=== PATIENT | female | born 1985 | race Hispanic/Latino ===

== ENCOUNTER 2022-02-13 08:53 | Emergency (ER) | payer OTHER ==
[~2022-02-13] VITALS: Ht 154.9 cm; Wt 92.5 kg
[2022-02-13] MEDS ORDERED: ALBUTEROL INHALER 90MCG/INH IH ONE (10:00)
[2022-02-13] MEDS ORDERED: GUAIFENESIN-DM 200/20 MG 10 ML PO ONE (10:00)
[2022-02-13] MEDS ORDERED: DEXAMETHASONE SOD PHOSPHATE 4 MG/ML 1ML VIAL IM ONE (10:00)
[2022-02-13] MEDS ORDERED: IPRATROPIUM/ALBUTEROL SULFATE 3 ML SOLUTION IH ONE (10:00)
[2022-02-13] MEDS ORDERED: D-ME118S47 PO (10:17)
[2022-02-13] MEDS ORDERED: PRED20TA3 PO (10:17)
[2022-02-13] MEDS ORDERED: AZIT1PAC7 PO (10:17)
[2022-02-13] MEDS ORDERED: ALBU8.5H8 IH (10:17)
[2022-02-13 10:29] VITALS: BP 119/71
== END 2022-02-13 10:39 | disposition home or self-care (01) ==
LOC: EDH 08:53
DX: J06.9 Acute upper respiratory infection, unspecified (principal); R06.2 Wheezing; Z20.822 Contact with and (suspected) exposure to COVID-19; Z79.899 Other long term (current) drug therapy; Z90.89 Acquired absence of other organs
CPT/HCPCS: 99284; 71045; 87635; 87804 ×2; 96372; 94640; J1100; C9803

== ENCOUNTER → 2023-03-27 | Outpatient (CLI) | payer OTHER ==
[~2023-03-27] MED LIST: ALBU8.5H8 IH; AZIT1PAC7 PO; BROM118S48 PO; IOHEXOL 350 MG/ML 100ML INFUS..BTL IV ONE; IOHEXOL-350 75 ML VIAL IV ONE; PRED20TA3 PO
== END | disposition home or self-care (01) ==
LOC: RAH 07:45
PROVIDERS: ATTEND Internal Medicine Gastroenterology
DX: K82.8 Other specified diseases of gallbladder (principal); K42.9 Umbilical hernia without obstruction or gangrene; I81 Portal vein thrombosis; M47.815 Spondylosis without myelopathy or radiculopathy, thoracolumbar region; K44.9 Diaphragmatic hernia without obstruction or gangrene; Z98.890 Other specified postprocedural states; N32.89 Other specified disorders of bladder
CPT/HCPCS: 74178; Q9967

== ENCOUNTER 2023-05-12 01:17 | Emergency (ER) | payer OTHER ==
[~2023-05-12] VITALS: Ht 154.9 cm; Wt 68.0 kg
[~2023-05-12 01:17] MED LIST changes: -IOHEXOL 350 MG/ML 100ML INFUS..BTL IV ONE; -IOHEXOL-350 75 ML VIAL IV ONE
[2023-05-12] MEDS ORDERED: ONDANSETRON ODT 4MG TAB SL ONE (01:30)
[2023-05-12 01:44] LABS: APPEARANCE,URINE CLOUDY (CLEAR); BILIRUBIN,URINE NEGATIVE (NEGATIVE); COLOR,URINE YELLOW (YELLOW); GLUCOSE, URINE (UA) NEGATIVE (NEGATIVE); KETONES,URINE 20 mg/dL (NEGATIVE); LEUKOCYTE ESTERASE ,URINE 25 Leu/uL (NEGATIVE); NITRATE,URINE NEGATIVE (NEGATIVE); OCCULT BLOOD,URINE MODERATE (NEGATIVE); PH,URINE 5.5 (5.0-8.0); PROTEIN,URINE 20 mg/dL (NEGATIVE)
[2023-05-12 01:48] LABS: ADD UA MICROSCOPIC YES
[2023-05-12 01:49] LABS: HCG,QUALITATIVE URINE NEGATIVE (NEGATIVE)
[2023-05-12 01:50] LABS: BASOPHILS # (AUTO) 0.03 K/uL (0.00-0.20); BASOPHILS % (AUTO) 0.5 % (0.0-5.0); EOSINOPHILS # (AUTO) 0.09 K/uL (0.00-0.70); EOSINOPHILS % (AUTO) 1.4 % (0.0-8.0); HEMATOCRIT 40.4 % (36-48); IMMATURE GRANULOCYTE ABSOLUTE 0.02 K/uL (0-1); LYMPHOCYTES # (AUTO) 2.8 K/uL (1.0-4.8); LYMPHOCYTES % (AUTO) 42.4 % (21.0-51.0); MEAN CORPUSCULAR HEMOGLOBIN 30.3 pg (27.0-33.0); MEAN CORPUSCULAR HGB CONC 33.9 g/dL (32.0-36.0); MEAN CORPUSCULAR VOLUME 89.4 fL (79-99); MONOCYTES # (AUTO) 0.5 K/uL (0.1-1.0); MONOCYTES % (AUTO) 7.4 % (3.0-13.0); NEUTROPHILS # (AUTO) 3.2 K/uL (1.8-7.7); PLATELET COUNT (AUTO) 261 K/uL (130-400); RED BLOOD CELL COUNT(AUTO) 4.52 MIL/uL (4.00-5.50); RED CELL DISTRIBUTION WIDTH 12.4 % (11.0-15.5); WHITE BLOOD COUNT (AUTO) 6.6 K/uL (4.8-10.8)
[2023-05-12 01:50] LABS: INFLUENZA TYPE A Negative For Type A (NEGATIVE); INFLUENZA TYPE B Negative For Type B (NEGATIVE)
[2023-05-12 01:51] LABS: BACTERIA,URINE RARE /HPF (None Seen); MUCUS,URINE MOD LPF (None Seen); SQUAMOUS EPITHELIAL CELL,UR MOD /HPF (0-2)
[2023-05-12 01:56] LABS: SARS-CoV-2, RNA, NAAT POSITIVE SARS CoV-2 (NEGATIVE)
[2023-05-12 02:01] LABS: CARBON DIOXIDE 24 mmol/L (21-32); CHLORIDE 106 mmol/L (101-111); CREATININE 0.7 mg/dL (0.5-1.5); GLOMERULAR FILTR. RATE CALC 115 mL/min (>90); GLUCOSE,RANDOM 91 mg/dL (70-105); POTASSIUM 3.6 mmol/L (3.5-5.1); SODIUM SERUM 143 mmol/L (136-145); UREA NITROGEN, BLOOD 10 mg/dL (7-18)
[2023-05-12 02:09] LABS: CREATINE KINASE, TOTAL 45 U/L (21-232)
[2023-05-12] MEDS ORDERED: MORPHINE 4 MG SYG ONE (02:50)
[2023-05-12] MEDS ORDERED: METOCLOPRAMIDE 10 MG/2 ML VIAL ONE (02:50)
[2023-05-12] MEDS ORDERED: NITROFURANTOIN MONOHYD/M-CRYST 100 MG CAPSULE PO ONE (03:00)
[2023-05-12] MEDS ORDERED: METOCLOPRAMIDE 10 MG/2 ML VIAL IVP ONE (03:00)
[2023-05-12] MEDS ORDERED: LACTATED RINGERS 1000ML 2,000 ML IV SCH (03:00)
[2023-05-12] MEDS ORDERED: MORPHINE 4 MG SYG IVP ONE (03:00)
[2023-05-12] MEDS ORDERED: FAMOTIDINE 20MG VIAL IV ONE (03:00)
[2023-05-12 03:32] LABS: ALBUMIN 3.8 g/dL (3.5-5.0); BILIRUBIN,TOTAL 0.5 mg/dL (0.2-1.0); TOTAL PROTEIN, SERUM 7.4 g/dL (6.0-8.3)
[2023-05-12 03:43] LABS: BILIRUBIN,DIRECT 0.1 mg/dL (0.0-0.3)
[2023-05-12 04:51] VITALS: BP 136/72; PULSE 72; RESP 18; O2SAT 99
== END 2023-05-12 05:19 | disposition home or self-care (01) ==
LOC: EDH 01:17
DX: U07.1 COVID-19 (principal); K80.70 Calculus of gallbladder and bile duct without cholecystitis without obstruction; K80.20 Calculus of gallbladder without cholecystitis without obstruction; F17.200 Nicotine dependence, unspecified, uncomplicated; Z79.52 Long term (current) use of systemic steroids; Z88.0 Allergy status to penicillin; Z90.49 Acquired absence of other specified parts of digestive tract
CPT/HCPCS: 99285; 96374; 76705; 71045; 96375; 87635; 96361; 82550; 80076; 84484; 80048; 83690; 85025; 87804 ×2; 81001; 81025; 36415; 93005; J7120; J3490; J2270; J2765